=== PATIENT | male | born 1970 | race Caucasian/White ===

== ENCOUNTER 2019-02-26 07:26 | Emergency (ER) | payer OTHER ==
[2019-02-26 07:47] LABS: BASOPHILS % 0.5 % (0.0-1.5); NEUTROPHILS # 9.8 # k/uL (1.4-7.7)
[2019-02-26] MEDS: dilTIAZem HCL 25 MG/5 ML VIAL IVP ONE ×2 (07:51→08:17)
[2019-02-26] MEDS: dilTIAZem HCL 125 MG in 0.9 % SODIUM CHLORIDE 100 ML IV ONE (07:52)
[2019-02-26] MEDS: dilTIAZem HCL 25 MG/5 ML VIAL ONE (07:52)
[2019-02-26] MEDS: 0.9 % SODIUM CHLORIDE 100 ML IV ONE (07:52)
--- NOTE | 2019-02-26 08:03 | ED Physician Documentation ---
General Adult - HISTORIAN Historian: patient - HPI Stated Complaint: short of breath Chief Complaint: General Adult Onset: days ago (Tuesday morning 0800) Further Comments: yes (48 year old male patient presents with complaints of palpitations and intermittent chest pain since Tuesday morning at 0830. Patient states he was getting out of his deer stand and walked about 60 yeards when the tachycardia started. He has not sought medical attention until this morning. Patient denies any history of tachycardia, atrial fib or palpitations. Patient reports intermittent chest pain with fatiguea and dyspnea; denies diaphoresis or N/V.) - ROS CONST: no problems EYES/ENT: none CVS/RESP: chest pain, shortness of breath GI/: none MS/SKIN/LYMPH: none (depression) - PAST HX Past History: other (depression) Allergies/Adverse Reactions: Allergies Allergy/AdvReac Type Severity Reaction Status Date / Time No Known Allergies Allergy Unverified 02/26/19 07:53 Home Medications: Ambulatory Orders Medication Instructions Recorded Vortioxetine Hydrobromide 10 mg PO QDAY 02/26/19 [Trintellix] - SOCIAL HX Smoking History: other (e-cigarrettes) - FAMILY HX Family History: No - VITAL SIGNS Vital Signs: Vital Signs Temp Pulse Resp BP Pulse Ox 159 H 16 152/103 98 02/26/19 07:40 02/26/19 07:26 02/26/19 07:26 02/26/19 07:40 - REVIEWED ASSESSMENTS Nursing Assessment Reviewed: Yes Vitals Reviewed: Yes Progress - Progress Progress: Patient with Afib with RVR on arrival. Cardizem 20mg IV given and drip started. Patient denies CP or SOB on arrival. Reviewed lab and finding with patient; explained he would need inpatient admission and evaluation by cardiology. Patient lives in [place], [place]. Patient requested to drive himself to . Explained risk and benifit. Would have to sign out AMA. Offered to transfer closer to home. Patient prefers [facility]. Call to [facility]. Patient accepted by Dr Van. Staffing working on transfer arrangements and options. [phone] Insurance will not cover transfer to [facility]; discussed options with reina douglass. Will send to [facility] in [place]. [phone] Call to [facility]; patient discussed with [facility]. [phone] Patient SR on monitor 0955 Call from [facility] - updated on changes. Leave Cardizem drip at current rate per Dr Oreilly. - EKG/XRAY/CT EKG: rhythm (A fib; rate 166) ED Results Lab/Radiology - Lab Results Lab Results: Lab Results 02/26/19 07:38 WBC 13.20 K/ul H K/ul (4.00-12.00) RBC 4.45 M/ul M/ul (3.90-5.20) Hgb 14.4 g/dL g/dL (12.0-18.0) Hct 42.2 % % (37.0-53.0) MCV 95.0 fl fl (80.0-100.0) MCH 32.3 pg pg (28.0-34.0) MCHC 34.1 g/dL g/dL (30.0-36.0) RDW 12.5 % % (11.3-14.3) Plt Count 251 K/mm3 K/mm3 (130-400) Neut % (Auto) 74.4 % % (39.0-79.0) Lymph % (Auto) 15.6 % L % (16.0-50.0) [place] % (Auto) 7.9 % % (0.0-11.0) Eos % (Auto) 1.6 % % (0.0-6.8) Baso % (Auto) 0.5 % % (0.0-1.5) Neut # (Auto) 9.8 # k/uL H # k/uL (1.4-7.7) Lymph # (Auto) 2.1 # k/uL # k/uL (0.6-4.0) [place] # (Auto) 1.0 # k/uL H # k/uL (0.0-0.9) Eos # (Auto) 0.2 # k/uL # k/uL (0.0-0.6) Baso # (Auto) 0.1 # k/uL # k/uL (0.0-0.5) - Orders Orders: ED Orders Category Date Time Status Continuous EKG monitoring Q30M Care 02/26/19 07:40 Ordered Continuous Pulse Oximetry Q30M Care 02/26/19 07:[address] IV Lock 1T Care 02/26/19 07:40 Ordered CHEST 1VIEW [RAD] Stat Exams 02/26/19 07:41 Ordered CBC AUTO DIFF Routine Lab 02/26/19 07:38 Received CMP Routine Lab 02/26/19 07:38 Stop Req CMP Stat Lab 02/26/19 07:40 Ordered MAGNESIUM Routine Lab 02/26/19 07:38 Stop Req MAGNESIUM Stat Lab 02/26/19 07:42 Ordered TROPONIN I Routine Lab 02/26/19 07:38 Stop Req 0.9 % Sodium Chloride [Normal Saline] 100 ml Med 02/26/19 07:37 Discontinued IV .STK-MED dilTIAZem HCL [Cardizem] Med 02/26/19 07:36 Discontinued 125 mg IV .STK-MED ONE dilTIAZem HCL [Cardizem] Med 02/26/19 07:39 Once 20 mg IVP STAT ONE dilTIAZem HCL [Cardizem] Med 02/26/19 07:36 Discontinued 25 mg .ROUTE .STK-MED ONE dilTIAZem HCL [Cardizem] 125 mg Med 02/26/19 07:39 Ordered 0.9 % Sodium Chloride [Normal Saline] 100 ml IV NOW Oxygen Daily Oxygen 02/26/19 07:45 Ordered EKG WITH COMPARISON Stat Ther 02/26/19 07:40 Ordered General Adult Physical Exam - PHYSICAL EXAM GENERAL APPEARANCE: mild distress EENT: eye inspection normal, JAHAIRA RESPIRATORY: no resp distress, chest non-tender, breath sounds normal CVS: heart sounds normal, no murmur, no gallop, irregularly irregular rhy, other (Atrial Fib with RVR) ABDOMEN: soft, no organomegaly, normal bowel sounds, no abdominal bruit, no distension, other (morbid obesity) BACK: normal inspection, no CVA tenderness SKIN: normal color, warm/dry, NR, INT, PAL, DR EXTREMITIES: non-tender, normal range of motion, no evidence of injury, no edema, J, [employer] NEURO: oriented X3, CN's nml as tested, motor nml, sensation nml, mood/affect nml Discharge Clincal Impression: Atrial fibrillation with RVR Referrals: Primary Doctor,No [Primary Care Provider] - 2 Days Condition: Fair Disposition: XFER [facility] HOSP Decision to Admit: NO Decision Time: 09:55
[2019-02-26 08:11] LABS: MAGNESIUM 1.9 mIU/l (1.6-2.3); eGFR (Non-African) > 60
[2019-02-26] MEDS: HEPARIN SODIUM 5000 UNIT/1 ML IV ONE (08:32)
[2019-02-26] MEDS: HEPARIN SODIUM,PORCINE/D5W 20,000 UNIT/500 ML BAG IV ONE (08:33)
--- NOTE | 2019-02-26 08:39 | Diagnostic Imaging Report ---
PATIENT MR#: [id number] PATIENT PATIENT NAME: VARSHA BARRIOS DATE OF : 1970 REFERRING PHYSICIAN: KUNAL DELCID EXAM DATE: 02/26/2019 ACCESSION NUMBER: [id number] EXAM DESCRIPTION: CHEST 1VIEW Examination: Portable chest History: Evaluate lungs Comparison exam: None provided. Findings: Single view of the chest demonstrates a normal cardiac and mediastinal silhouette. Tortuous aorta. Chronic interstitial changes. Lung campos without focal infiltrate. No blunting of the costophrenic margins. Osseous structures are appropriate for age. Impression: Chronic interstitial changes. No acute appearing pulmonary process. Read by: Dr. Vidal Jhaveri Transcribed by: Transcribed Date: Electronically signed by: Dr. Vidal Jhaveri Date signed: 02/26/2019 8:38:28 AM
[2019-02-26] MEDS: MAGNESIUM SULFATE 2 GM in 0.9 % SODIUM CHLORIDE 100 ML IV ONE (09:26)
[2019-02-26 10:23] VITALS: BP 111/79
== END 2019-02-26 10:18 | disposition short-term general hospital (02) ==
LOC: ED 07:26
DX: I48.91 Unspecified atrial fibrillation (principal)
CPT/HCPCS: 71045; 80053; 83735; 84484; 85025; 85610; 85730; 93005; 96361; 96374; 96375; 96376; 99284; J1644; J3475; J3490; S1016